=== PATIENT | male | born 1960 | race Caucasian/White ===

== ENCOUNTER 2022-11-24 06:57 | Day surgery (SDC) | payer BC ==
[~2022-11-24] VITALS: Ht 177.8 cm; Wt 81.6 kg
[2022-11-24] MEDS ORDERED: CEFAZOLIN SOD 1 GM/ ISO 50 ML PREMIX IV ONE (07:00)
[2022-11-24] MEDS ORDERED: ROCURONIUM BROMIDE 10 MG/ML (ZEMURON) ONE (07:52)
[2022-11-24] MEDS ORDERED: ONDANSETRON HCL 4 MG/2 ML VIAL ONE (07:52)
[2022-11-24] MEDS ORDERED: GLYCOPYRROLATE 0.2 MG/ML VIAL ONE (07:52)
[2022-11-24] MEDS ORDERED: fentaNYL CITRATE/PF 100 MCG/2 ML AMP ONE (07:52)
[2022-11-24] MEDS ORDERED: SUCCINYLCHOLINE CHLORIDE 20 MG/ML(QUELICIN) ONE (07:52)
[2022-11-24] MEDS ORDERED: NS 1000 ML IV.SOLN IV ONE (07:52)
[2022-11-24] MEDS ORDERED: BUPIVACAINE /PF 0.25% 30 ML VIAL INJ ONE (07:52)
[2022-11-24] MEDS ORDERED: NS 100 ML BAG ONE (07:52)
[2022-11-24] MEDS ORDERED: PROPOFOL 200MG/ 20ML VIAL (DIPRIVAN) IV ONE (07:52)
[2022-11-24] MEDS ORDERED: SEVOFLURANE 15 MIN GAS INH ONE (07:52)
[2022-11-24] MEDS ORDERED: NS IRRIG SOLN 1000 ML IR ONE (07:52)
[2022-11-24] MEDS ORDERED: PHENYLEPHRINE HCL 10 MG/ML VIAL (NEOSYNEPHRINE) ONE (07:52)
[2022-11-24] MEDS ORDERED: METOCLOPRAMIDE HCL 10 MG/2 ML VIAL IVP PRN (08:45)
[2022-11-24] MEDS ORDERED: ONDANSETRON HCL 4 MG/2 ML VIAL IVP PRN (08:45)
[2022-11-24] MEDS ORDERED: HYDROmorphone 1 MG/ML INJ. CARTRIDGE IVP PRN (08:45)
[2022-11-24] MEDS ORDERED: KETOROLAC TROMETHAMINE 30 MG VIAL IVP PRN (08:45)
[2022-11-24] MEDS ORDERED: ACETAMINOPHEN 500 MG TABLET PO ONE (08:45)
[2022-11-24] MEDS ORDERED: D5/0.45 NS 1,000 ML IV SCH (09:00)
[2022-11-24] MEDS ORDERED: HYDROcodone/ACETAMIN 5-325 MG TAB (NORCO/ VICODIN) PO PRN (09:00)
[2022-11-24 14:09] VITALS: BP_SYST 131
== END 2022-11-24 11:30 | disposition home or self-care (01) ==
LOC: SDS 06:57 → SMU 06:57 → SDS 11:30
PROVIDERS: ATTEND Colon & Rectal Surgery
DX: K43.0 Incisional hernia with obstruction, without gangrene (principal); I10 Essential (primary) hypertension; K21.9 Gastro-esophageal reflux disease without esophagitis; E78.2 Mixed hyperlipidemia; Z80.42 Family history of malignant neoplasm of prostate; Z79.82 Long term (current) use of aspirin; Z79.899 Other long term (current) drug therapy
CPT/HCPCS: 87081; 49623; 49616; 88302; J3490 ×2; J0690; J2405; J2370; J2704; J0330; J3010; J7120; J7030; C1781